=== PATIENT | female | born 1960 | race Caucasian/White ===

== ENCOUNTER 2018-11-06 08:56 | Day surgery (SDC) | payer BC ==
[~2018-11-06 08:56] MED LIST: Sodium Chloride 0.9% 10 ML Syringe FLUSH PRN
[2018-11-06] MEDS ORDERED: Lidocaine 1% 4 ML ONE (09:40)
[2018-11-06] MEDS ORDERED: Propofol 200 MG/20 ML SDV ONE ×2 (09:40→13:07)
[2018-11-06] MEDS ORDERED: Midazolam 1 MG/ML 2 ML SDV ONE (09:40)
[2018-11-06] MEDS: Lidocaine 1%/Sod Bicarbonate in NS 8.4% 1 ML Syringe IDERM PRN (10:28)
[2018-11-06] MEDS: Lactated Ringers 1,000 ML IV SCH (10:30)
--- NOTE | 2018-11-06 10:51 | PCM.PREANE ---
Preanesthetic Assessment - Procedure Proposed Procedure: screening colonoscopy - Anesthesia/Transfusion/Family Hx Anesthesia History: Prior Anesthesia Without Reaction Family History of Anesthesia Reaction: No Transfusion History: No Prior Transfusion(s) - Review of Systems General: No Symptoms Pulmonary: Cough (getting over a cold) Cardiovascular: No Symptoms Gastrointestinal: No Symptoms Neurological: No Symptoms Other: Reports: Thyroid Problems, Anxiety - Physical Assessment NPO Status Date: 11/06/18 NPO Status Time: 04:00 (prep) Vital Signs: Last Vital Signs Temp 97.1 F 11/06/18 10:20 Pulse 66 11/06/18 10:20 Resp 16 11/06/18 10:20 BP 140/75 11/06/18 10:20 Pulse Ox 97 11/06/18 10:20 Height: 5 ft 7 in Weight: 98.43 kg ASA Class: 2 Mental Status: Alert & Oriented x3 Airway Class: Mallampati = 2 Dentition: Reports: Normal Dentition Thyro-Mental Finger Breadths: 3 Mouth Opening Finger Breadths: 3 ROM/Head Extension: Full Lungs: Clear to Auscultation, Normal Respiratory Effort Cardiovascular: Regular Rate, Regular Rhythm - Allergies Allergies/Adverse Reactions: Allergies Allergy/AdvReac Type Severity Reaction Status Date / Time No Known Allergies Allergy Verified 11/05/18 16:26 - Blood Blood Available: No - Acknowledgements Anesthesia Type Planned: MAC Pt an Appropriate Candidate for the Planned Anesthesia: Yes Alternatives and Risks of Anesthesia Discussed w Pt/Guardian: Yes Pt/Guardian Understands and Agrees with Anesthesia Plan: Yes PreAnesthesia Questionnaire HEENT History: Reports: Allergic Rhinitis, Other (See Below) Other HEENT History: impacted cerumen, cataract Cardiovascular History: Reports: Other (See Below) Other Cardiovascular History: varicose veins Respiratory History: Reports: Sleep Apnea (cpap) Gastrointestinal History: Reports: Hemorrhoids Genitourinary History: Reports: None 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 Musculoskeletal History: Reports: None Neurological History: Reports: Other (See Below) Other Neuro History: neck pain- occasional Psychiatric History: Reports: Anxiety, Depression, Other (See Below) Other Psychiatric History: insomnia Endocrine/Metabolic History: Reports: Hypothyroidism, Obesity/BMI 30+, Vitamin D Deficiency, Other (See Below) Other Endocrine/Metabolic History: grave's disease Hematologic History: Reports: None Immunologic History: Reports: None Oncologic (Cancer) History: Reports: None Dermatologic History: Reports: Other (See Below) Other Dermatologic History: nevus - Past Surgical History Head Surgeries/Procedures: Reports: None HEENT Surgical History: Reports: Cataract Surgery, Detached Retina, LASIK Cardiovascular Surgical History: Reports: None Respiratory Surgical History: Reports: None GI Surgical History: Reports: Colonoscopy Female Surgical History: Reports: None Male Surgical History: Reports: None Endocrine Surgical History: Reports: Thyroidectomy Neurological Surgical History: Reports: None Musculoskeletal Surgical History: Reports: None Oncologic Surgical History: Reports: None - SUBSTANCE USE Smoking Status *Q: Never Smoker Tobacco Use Within Last Twelve Months: No Second Hand Smoke Exposure: No Days Per Week of Alcohol Use: 1 Number of Drinks Per Day: 2 (beer) Total Drinks Per Week: 2 Recreational Drug Use History: No - HOME MEDS Home Medications: Home Meds Cholecalciferol (Vitamin D3) [Vitamin D3] 2,000 unit PO DAILY 11/05/18 [History] Codeine/Butalbital/ASA/Caffein [Ascomp with Codeine] 1 tab PO Q4H PRN 11/05/18 [ History] Cyclobenzaprine [Flexeril] 10 mg PO TID 11/05/18 [History] Fish Oil/[place]-3 Fatty Acids [Fish Oil 1,000 MG] 1 gm PO DAILY 11/05/18 [History ] Levothyroxine [Synthroid] 100 mcg PO DAILY 11/05/18 [History] Lutein 10 mg PO DAILY 11/05/18 [History] Multivitamin [Daily Multiple Vitamin] 1 tab PO DAILY 11/05/18 [History] Propylene Glycol/PEG 400/Pf [Systane 0.3-0.4% Eye Drop] 1 drop EYEBOTH ASDIRECTED 11/05/18 [History] Venlafaxine HCl [Venlafaxine ER] 150 mg PO DAILY 11/05/18 [History] - CURRENT (IN HOUSE) MEDS Current Meds: Current Medications Lactated Ringer's (Ringers, Lactated) 1,000 mls @ 125 mls/hr IV ASDIRECTED KALIE Stop: 11/06/18 23:00 Lidocaine/Sodium Bicarbonate (Buffered Lidocaine 1% In Ns 8.4%) 0.25 ml IDERM ONETIME PRN PRN Reason: Prior to IV Start Stop: 11/06/18 18:00 Sodium Chloride (Saline Flush) 10 ml FLUSH ASDIRECTED PRN PRN Reason: Keep Vein Open Stop: 11/06/18 18:00 Discontinued Medications Lidocaine HCl (Xylocaine-Mpf 1%) Confirm Administered Dose 4 mls @ as directed .ROUTE .STK-MED ONE Stop: 11/06/18 09:41 Midazolam HCl (Versed 1 Mg/Ml) Confirm Administered Dose 2 mg .ROUTE .STK-MED ONE Stop: 11/06/18 09:41 Propofol (Diprivan 20 Ml) Confirm Administered Dose 400 mg .ROUTE .STK-MED ONE Stop: 11/06/18 09:41
[2018-11-06] MEDS ORDERED: fentaNYL 100 MCG/2 ML SDV ONE (12:40)
--- NOTE | 2018-11-06 13:25 | PCM48HPAN ---
Post Anesthesia Note - EVALUATION WITHIN 48HRS OF ANESTHETIC Vital Signs in Normal Range: Yes Patient Participated in Evaluation: Yes Respiratory Function Stable: Yes Airway Patent: Yes Cardiovascular Function Stable: Yes Hydration Status Stable: Yes Pain Control Satisfactory: Yes Nausea and Vomiting Control Satisfactory: Yes Mental Status Recovered: Yes Vital Signs: Last Vital Signs Temp 36.2 C 11/06/18 10:20 Pulse 66 11/06/18 10:20 Resp 16 11/06/18 10:20 BP 140/75 11/06/18 10:20 Pulse Ox 97 11/06/18 10:20 - COMMENTS/OBSERVATIONS Free Text/Narrative:: no anesthesia complications noted
--- NOTE | 2018-11-06 20:17 | OR ---
DATE OF OPERATION: 11/06/2018 SURGEON: Rakan Cancino MD PREOPERATIVE DIAGNOSIS: Strong family history of colon cancer. POSTOPERATIVE DIAGNOSIS: Strong family history of colon cancer and colon polyp. OPERATION PERFORMED: Endoscopic submucosal tattoo injection and polypectomy. ANESTHESIA: MAC. FINDINGS: She had a broad-based sessile polyp covering substantial portion of the mucosal fold in the ascending colon. This broad-based polyp was quite difficult to get to. She has a very redundant colon. Once I was in position, I tried to remove this with a snare, but I could never get purchase on this sessile polyp as the angulation of the scope did not allow for snare polypectomy, so I had to remove the polyp piecemeal over a fairly broad soft tissue. At some point, I was unable to determine polyp versus macerated tissue. The adjacent mucosal fold was tattooed with endoscopic tattoo. Her bowel prep was excellent. PATHOLOGY: Ascending colon polyp. DISPOSITION: Stable at the end of the procedure. ESTIMATED BLOOD LOSS: Minimal. INDICATION: The patient is a 58-year-old female who presents with a strong family history of colon cancer. Her brother of the diagnosis in his 60s. She was offered a screening colonoscopy per the standard of care. She was fully informed of the major risks, benefits, and alternatives. The risks being perforation of the colon, bleeding, the risks of anesthesia, and possibility of further surgery among others. She gave informed consent. DESCRIPTION OF PROCEDURE: The patient was brought to the gastro suite and placed in the left lateral decubitus position. She was given monitored anesthesia. Digital rectal exam was performed, this was unremarkable. I introduced the colonoscope with copious lubrication into the rectum. I advanced the scope with gentle forward pressure. She has an extremely redundant colon requiring anterior abdominal wall pressure from 2 assistants. Eventually, I was able to reach the cecum. The cecum was documented photographically. On the way in, I noted a broad-based polyp as described above in the ascending colon. I initially attempted to remove this polyp with snare, but I could not angulate the scope more than 90 degrees to get purchase around the polyp, and so biopsy forceps was utilized to resect the polyp piecemeal. I took multiple bites of this polyp spread over large a portion of a mucosal fold. Eventually, I was unable to determine the difference between macerated tissue and the polyp itself. I had tattooed the adjacent mucosa with 2 mL of endoscopic tattoo. I continued my examination. I thoroughly examined the mucosa of the colon from the ascending colon all the way back to the anus in an exam lasting more than 20 minutes. Thorough careful examination demonstrated only this polyp. The remainder of her colonoscopy was unremarkable. At the end of the procedure, the scope was withdrawn. She was awakened from anesthesia and moved to recovery in stable condition. PLAN: She will need another colonoscopy in 3 months to assure complete removal of this macerated sessile polyp. SHARMAINE /[id number]
== END 2018-11-06 14:35 | disposition home or self-care (01) ==
LOC: JD.SDS 08:56
PROVIDERS: ATTEND Surgery
DX: Z12.11 Encounter for screening for malignant neoplasm of colon (principal); D12.2 Benign neoplasm of ascending colon; Q43.8 Other specified congenital malformations of intestine; E78.00 Pure hypercholesterolemia, unspecified; G47.33 Obstructive sleep apnea (adult) (pediatric); E55.9 Vitamin D deficiency, unspecified; F32.9 Major depressive disorder, single episode, unspecified; F41.9 Anxiety disorder, unspecified; Z80.0 Family history of malignant neoplasm of digestive organs; Z99.89 Dependence on other enabling machines and devices; Z79.899 Other long term (current) drug therapy
CPT/HCPCS: 00812; J2001; J2250; J2704; J3010; J7120

== ENCOUNTER 2019-02-26 07:07 | Day surgery (SDC) | payer BC ==
--- NOTE | 2019-02-25 11:54 | PCM.PREANE ---
Preanesthetic Assessment - Anesthesia/Transfusion/Family Hx Anesthesia History: Prior Anesthesia Without Reaction Family History of Anesthesia Reaction: No Transfusion History: No Prior Transfusion(s) Intubation History: Unknown - Review of Systems General: No Symptoms Pulmonary: No Symptoms (ESTHER-CPAP) Cardiovascular: No Symptoms Gastrointestinal: Constipation Neurological: No Symptoms, Headache Other: Reports: Thyroid Problems (hypothyroidism, history of graves disease), Neck Pain (chronic), Depression, Anxiety - Physical Assessment NPO Status Date: 02/26/19 NPO Status Time: 04:00 Vital Signs: HR:65 BP:149/74 Sat:99 Temp:98.6 Resp:16 Height: 1.7 m Weight: 104 kg ASA Class: 2 Mental Status: Alert & Oriented x3 Airway Class: Mallampati = 2 Dentition: Reports: Normal Dentition, Caries Thyro-Mental Finger Breadths: 3 Mouth Opening Finger Breadths: 3 ROM/Head Extension: Full Lungs: Clear to Auscultation, Normal Respiratory Effort Cardiovascular: Regular Rate, Regular Rhythm, No Murmurs - Lab Values: All labs reviewed and noted and within acceptable ranges to proceed with scheduled procedure. - Allergies Allergies/Adverse Reactions: Allergies Allergy/AdvReac Type Severity Reaction Status Date / Time No Known Allergies Allergy Verified 02/25/19 13:38 - Anesthesia Plan Pre-Op Medication Ordered: None - Acknowledgements Anesthesia Type Planned: MAC Pt an Appropriate Candidate for the Planned Anesthesia: Yes Alternatives and Risks of Anesthesia Discussed w Pt/Guardian: Yes Pt/Guardian Understands and Agrees with Anesthesia Plan: Yes PreAnesthesia Questionnaire HEENT History: Reports: Allergic Rhinitis, Other (See Below) Other HEENT History: impacted cerumen, cataract Cardiovascular History: Reports: Other (See Below) Other Cardiovascular History: varicose veins Respiratory History: Reports: Sleep Apnea (cpap) Gastrointestinal History: Reports: Hemorrhoids Genitourinary History: Reports: None 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 Musculoskeletal History: Reports: None Neurological History: Reports: Other (See Below) Other Neuro History: neck pain- occasional Psychiatric History: Reports: Anxiety, Depression, Other (See Below) Other Psychiatric History: insomnia Endocrine/Metabolic History: Reports: Hypothyroidism, Obesity/BMI 30+, Vitamin D Deficiency, Other (See Below) Other Endocrine/Metabolic History: grave's disease Hematologic History: Reports: None Immunologic History: Reports: None Oncologic (Cancer) History: Reports: None Dermatologic History: Reports: Other (See Below) Other Dermatologic History: nevus - Past Surgical History Head Surgeries/Procedures: Reports: None HEENT Surgical History: Reports: Cataract Surgery, Detached Retina, LASIK Cardiovascular Surgical History: Reports: None Respiratory Surgical History: Reports: None GI Surgical History: Reports: Colonoscopy Female Surgical History: Reports: None Male Surgical History: Reports: None Endocrine Surgical History: Reports: Thyroidectomy Neurological Surgical History: Reports: None Musculoskeletal Surgical History: Reports: None Oncologic Surgical History: Reports: None - HOME MEDS Home Medications: Home Meds Cholecalciferol (Vitamin D3) [Vitamin D3] 2,000 unit PO DAILY 11/05/18 [History] Codeine/Butalbital/ASA/Caffein [Ascomp with Codeine] 1 tab PO Q4H PRN 11/05/18 [ History] Cyclobenzaprine [Flexeril] 10 mg PO TID 11/05/18 [History] Fish Oil/[place]-3 Fatty Acids [Fish Oil 1,000 MG] 1 gm PO DAILY 11/05/18 [History ] Levothyroxine [Synthroid] 100 mcg PO DAILY 11/05/18 [History] Lutein 10 mg PO DAILY 11/05/18 [History] Multivitamin [Daily Multiple Vitamin] 1 tab PO DAILY 11/05/18 [History] Propylene Glycol/PEG 400/Pf [Systane 0.3-0.4% Eye Drop] 1 drop EYEBOTH ASDIRECTED 11/05/18 [History] Venlafaxine HCl [Venlafaxine ER] 150 mg PO DAILY 11/05/18 [History] - CURRENT (IN HOUSE) MEDS Current Meds: Current Medications Lactated Ringer's (Ringers, Lactated) 1,000 mls @ 125 mls/hr IV ASDIRECTED KALIE Stop: 02/26/19 23:00 Lidocaine/Sodium Bicarbonate (Buffered Lidocaine 1% In Ns 8.4%) 0.25 ml IDERM ONETIME PRN PRN Reason: Prior to IV Start Stop: 02/26/19 18:00 Sodium Chloride (Saline Flush) 10 ml FLUSH ASDIRECTED PRN PRN Reason: Keep Vein Open Stop: 02/26/19 18:00
[~2019-02-26 07:07] MED LIST changes: +Lactated Ringers 1,000 ML IV SCH; +Lidocaine 1% 6 ML ONE; +Lidocaine 1%/Sod Bicarbonate in NS 8.4% 1 ML Syringe IDERM PRN; +Propofol 200 MG/20 ML SDV ONE; +fentaNYL 100 MCG/2 ML SDV ONE
[2019-02-26] MEDS ORDERED: Propofol 200 MG/20 ML SDV ONE ×4 (08:22→09:45)
[2019-02-26] MEDS ORDERED: Lactated Ringers 0 ML ONE (08:38)
[2019-02-26] MEDS ORDERED: Lactated Ringers 1,000 ML ONE (09:55)
--- NOTE | 2019-02-26 10:10 | PCM.PRNOTE ---
- Free Text/Narrative Note: Date: 02/26/2019 Procedure: diagnostic endoscopy Endoscopist: Natanael Aguiar MD Findings: old tattoo ink and broad-based sessile polyp in previously described site identified. Extremely difficult colonoscopy due to redundancy of the colon. Detailed Report: The patient was taken to the endoscopy suite and placed in left lateral decubitus position. Monitored anesthesia care was initiated, and timeout was performed. Inspection of the anus revealed small external hemorrhoidal disease. Digital rectal exam was unremarkable. The colonoscope was advanced to the ileocecal valve. The prep was mediocre. Performance of colonoscopy was extremely difficult due to redundancy of the colon. The ascending colon was inspected, an old tattoo ink was identified just proximal to a sessile polyp matching description and previous colonoscopy report 3 months ago. This lesion was not amenable to endoscopic resection. Patient tolerated the procedure well. Recommend right hemicolectomy for definitive removal of this lesion. Natanael Aguiar MD General Surgery
--- NOTE | 2019-02-26 10:10 | PCM48HPAN ---
Post Anesthesia Note - EVALUATION WITHIN 48HRS OF ANESTHETIC Vital Signs in Normal Range: Yes Patient Participated in Evaluation: Yes Respiratory Function Stable: Yes Airway Patent: Yes Cardiovascular Function Stable: Yes Hydration Status Stable: Yes Pain Control Satisfactory: Yes Nausea and Vomiting Control Satisfactory: Yes Mental Status Recovered: Yes Vital Signs: Last Vital Signs Temp 37.0 C 02/26/19 07:20 Pulse 65 02/26/19 07:20 Resp 16 02/26/19 07:20 BP 149/74 H 02/26/19 07:20 Pulse Ox 99 02/26/19 07:20
== END 2019-02-26 11:13 | disposition home or self-care (01) ==
LOC: JD.SDS 07:07
PROVIDERS: ATTEND Surgery
DX: K63.5 Polyp of colon (principal); Q43.8 Other specified congenital malformations of intestine; K64.4 Residual hemorrhoidal skin tags; F41.9 Anxiety disorder, unspecified; F32.9 Major depressive disorder, single episode, unspecified; E78.00 Pure hypercholesterolemia, unspecified; G47.00 Insomnia, unspecified; G47.33 Obstructive sleep apnea (adult) (pediatric); I83.93 Asymptomatic varicose veins of bilateral lower extremities; E55.9 Vitamin D deficiency, unspecified; E89.0 Postprocedural hypothyroidism; E05.00 Thyrotoxicosis with diffuse goiter without thyrotoxic crisis or storm; E66.9 Obesity, unspecified; Z68.38 Body mass index [BMI] 38.0-38.9, adult; Z80.0 Family history of malignant neoplasm of digestive organs; Z99.89 Dependence on other enabling machines and devices; Z98.890 Other specified postprocedural states; Z79.890 Hormone replacement therapy; Z79.899 Other long term (current) drug therapy
CPT/HCPCS: 36415; 45378; 80053; 85025; 85610; 93005; J2001; J2704; J3010; J7120

== ENCOUNTER 2019-02-28 09:02 | Inpatient (IN) | payer BC ==
--- NOTE | 2019-02-28 06:17 | PCM.PREANE ---
Preanesthetic Assessment - Anesthesia/Transfusion/Family Hx Anesthesia History: Prior Anesthesia Without Reaction Family History of Anesthesia Reaction: No Transfusion History: No Prior Transfusion(s) Intubation History: Unknown - Review of Systems General: No Symptoms Pulmonary: No Symptoms (ESTHER - CPAP, ETOH occasionally), Cough (dry cough noted on/off for 3-4 months) Cardiovascular: No Symptoms, Dyspnea on Exertion Gastrointestinal: No Symptoms, Constipation Neurological: No Symptoms, Headache Other: Reports: Easy Bruising, Thyroid Problems (Hypothyroid- history of Graves disease), Neck Pain (chronic), Depression, Anxiety - Physical Assessment NPO Status Date: 02/27/19 NPO Status Time: 18:00 Vital Signs: HR:70 BP:133/66 Sat:92% Temp:98.0f Height: 1.7 m Weight: 102 kg ASA Class: 2 Mental Status: Alert & Oriented x3 Airway Class: Mallampati = 2 Dentition: Reports: Normal Dentition, Caries Thyro-Mental Finger Breadths: 3 Mouth Opening Finger Breadths: 3 ROM/Head Extension: Full Lungs: Clear to Auscultation (Good air exchange noted with decreased O2 saturation on room air at rest noted. PCXR ordered.), Normal Respiratory Effort Cardiovascular: Regular Rate, Regular Rhythm, No Murmurs - Lab Values: All labs reviewed and noted and within acceptable ranges to proceed with scheduled procedure. - Imaging/EKG Impressions: EKG: SB rate= 57, consider left atrial hypertrophy - Allergies Allergies/Adverse Reactions: Allergies Allergy/AdvReac Type Severity Reaction Status Date / Time No Known Allergies Allergy Verified 02/25/19 13:38 - Anesthesia Plan Pre-Op Medication Ordered: None - Acknowledgements Anesthesia Type Planned: General Anesthesia Pt an Appropriate Candidate for the Planned Anesthesia: Yes Alternatives and Risks of Anesthesia Discussed w Pt/Guardian: Yes Pt/Guardian Understands and Agrees with Anesthesia Plan: Yes PreAnesthesia Questionnaire HEENT History: Reports: Allergic Rhinitis, Other (See Below) Other HEENT History: impacted cerumen, cataract Cardiovascular History: Reports: Other (See Below) Other Cardiovascular History: varicose veins Respiratory History: Reports: Sleep Apnea (cpap) Gastrointestinal History: Reports: Hemorrhoids Genitourinary History: Reports: None [employer]BE[employer]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 Musculoskeletal History: Reports: None Neurological History: Reports: Other (See Below) Other Neuro History: neck pain- occasional Psychiatric History: Reports: Anxiety, Depression, Other (See Below) Other Psychiatric History: insomnia Endocrine/Metabolic History: Reports: Hypothyroidism, Obesity/BMI 30+, Vitamin D Deficiency, Other (See Below) Other Endocrine/Metabolic History: grave's disease Hematologic History: Reports: None Immunologic History: Reports: None Oncologic (Cancer) History: Reports: None Dermatologic History: Reports: Other (See Below) Other Dermatologic History: nevus - Past Surgical History Head Surgeries/Procedures: Reports: None HEENT Surgical History: Reports: Cataract Surgery, Detached Retina, LASIK Cardiovascular Surgical History: Reports: None Respiratory Surgical History: Reports: None GI Surgical History: Reports: Colonoscopy Female Surgical History: Reports: None Male Surgical History: Reports: None Endocrine Surgical History: Reports: Thyroidectomy Neurological Surgical History: Reports: None Musculoskeletal Surgical History: Reports: None Oncologic Surgical History: Reports: None - HOME MEDS Home Medications: Home Meds Cholecalciferol (Vitamin D3) [Vitamin D3] 2,000 unit PO DAILY 11/05/18 [History] Codeine/Butalbital/ASA/Caffein [Ascomp with Codeine] 1 tab PO Q4H PRN 11/05/18 [ History] Cyclobenzaprine [Flexeril] 10 mg PO TID 11/05/18 [History] Fish Oil/[employer]-3 Fatty Acids [Fish Oil 1,000 MG] 1 gm PO DAILY 11/05/18 [History ] Levothyroxine [Synthroid] 100 mcg PO DAILY 11/05/18 [History] Lutein 10 mg PO DAILY 11/05/18 [History] Multivitamin [Daily Multiple Vitamin] 1 tab PO DAILY 11/05/18 [History] Propylene Glycol/PEG 400/Pf [Systane 0.3-0.4% Eye Drop] 1 drop EYEBOTH ASDIRECTED 11/05/18 [History] Venlafaxine HCl [Venlafaxine ER] 150 mg PO DAILY 11/05/18 [History] - CURRENT (IN HOUSE) MEDS Current Meds: Current Medications Lactated Ringer's (Ringers, Lactated) 1,000 mls @ 125 mls/hr IV ASDIRECTED KALIE Stop: 02/28/19 23:00 Lidocaine/Sodium Bicarbonate (Buffered Lidocaine 1% In Ns 8.4%) 0.25 ml IDERM ONETIME PRN PRN Reason: Prior to IV Start Stop: 02/28/19 18:00 Sodium Chloride (Saline Flush) 10 ml FLUSH ASDIRECTED PRN PRN Reason: Keep Vein Open Stop: 02/28/19 18:00
[~2019-02-28 09:02] MED LIST changes: +Dexamethasone 4 MG/ML 5 ML MDV ONE; +HYDROmorphone 0.5 MG/0.5 ML Syringe ONE; +Ketorolac 30 MG/ML SDV ONE; +Lactated Ringers 2,000 ML ONE; +Midazolam 1 MG/ML 2 ML SDV ONE; +Ondansetron 4 MG/2 ML SDV ONE; +Rocuronium 100 MG/10 ML MDV ONE; +ceFAZolin 1 GM Vial ONE; -fentaNYL 100 MCG/2 ML SDV ONE; +fentaNYL 250 MCG/5 ML SDV ONE
[2019-02-28] MEDS ORDERED: Bupivacaine 0.5% 30 ML SDV ONE (09:09)
[2019-02-28] MEDS ORDERED: Albuterol 0.083% 2.5 MG/3 ML Neb Soln NEB ONE (09:37)
[2019-02-28] MEDS ORDERED: Bupivacaine 0.5%/EPINEPHrine 1:200,000 50 ML MDV ONE (09:50)
--- NOTE | 2019-02-28 10:13 | CR ---
Chest: 2 views of the chest were obtained. Comparison: No prior chest imaging is available. Heart size and mediastinum are normal. Lungs are clear. Bony structures appear within normal limits for the patient's age. Impression: 1. Nothing acute is appreciated on 2 view chest x-ray. Diagnostic code #1 This report was dictated in [place] Standard Time
[2019-02-28] MEDS ORDERED: diphenhydrAMINE 50 MG/ML SDV IVPUSH PRN (10:47)
[2019-02-28] MEDS ORDERED: ePHEDrine 50 MG/ML SDV IVPUSH PRN (10:47)
[2019-02-28] MEDS ORDERED: Ondansetron 4 MG/2 ML SDV IVPUSH PRN (10:47)
[2019-02-28] MEDS ORDERED: Albuterol 0.083% 2.5 MG/3 ML Neb Soln NEB PRN (10:47)
[2019-02-28] MEDS ORDERED: HYDROmorphone 0.5 MG/0.5 ML Syringe IVPUSH PRN (10:47)
[2019-02-28] MEDS ORDERED: Phenylephrine 1 MG in Sodium Chloride 0.9% 10 ML IV SCH (11:00)
[2019-02-28] MEDS ORDERED: Neostigmine Methylsulfate 1 MG/ML 5 ML Syringe ONE (11:02)
[2019-02-28] MEDS ORDERED: HYDROmorphone 0.5 MG/0.5 ML Syringe ONE ×2 (11:03→13:02)
[2019-02-28] MEDS ORDERED: ePHEDrine/Normal Saline 25 MG/5 ML Syringe ONE (12:35)
[2019-02-28] MEDS ORDERED: Lactated Ringers 1,000 ML ONE (12:45)
[2019-02-28] MEDS ORDERED: Rocuronium 100 MG/10 ML MDV ONE (12:50)
[2019-02-28] MEDS ORDERED: fentaNYL 100 MCG/2 ML SDV ONE ×3 (13:41→15:13)
--- NOTE | 2019-02-28 14:29 | PCM.POSTAN ---
POST ANESTHESIA ASSESSMENT - MENTAL STATUS Mental Status: Alert - VITAL SIGNS Vital Signs: Last Vital Signs Temp 98.9 02/28/19 1419 Pulse 74 02/28/19 1419 Resp 11 02/28/19 1419 BP 131/72 02/28/19 1419 Pulse Ox 99% 02/28/19 1419 - RESPIRATORY Respiratory Status: Respiratory Rate WNL, Airway Patent, O2 Saturation Stable, Supplemental Oxygen - CARDIOVASCULAR CV Status: Pulse Rate WNL, Blood Pressure Stable - GASTROINTESTINAL GI Status: No Symptoms - POST OP HYDRATION Hydration Status: Adequate & Stable
--- NOTE | 2019-02-28 14:34 | PCM.PRNOTE ---
- Free Text/Narrative Note: Date: 02/28/2019 Operation: Laparoscopic right colectomy with ileocolic anastomosis Surgeon: Natanael Aguiar MD Indication: Piecemeal resection of broad based tubular adenoma months ago, with repeat scope earlier this week that was very difficult due to redundancy; the area of prior resection was seen including previously tattooed area. There did appear to be a mucosal lesion distal to the ink that was not very accessible with the endoscope. Therefore, right hemicolectomy was recommended. Findings: marking ink noted at mid ascending colon and associated mesentery. Very floppy, redundant colon with some omental adhesions to the right mesocolon. Specimen was resected about 5 cm distal to the inked site and opened on back table; no obvious adenoma was noted and I think that the prominence of the ileocecal junction was what appeared to be a broad-based adenoma on endoscopy. Stapled side to sided ileocolic anastomosis was created. Detailed Report: The patient was taken to the operating room and placed supine. Timeout was performed, general endotracheal anesthesia administered. The left arm was tucked the patient side, and a Hoyos catheter was placed. The abdomen was prepped and draped in usual sterile fashion. A Veress needle was inserted in the left upper quadrant to insufflate the abdomen. With pneumoperitoneum established, a 12 mm port was placed at the site of Veress insertion. The 10 mm 30 degree laparoscope was inserted in the abdomen, and contents inspected. A 5 mm port was placed at the subxiphoid region. The patient was placed in Trendelenburg with left side down to aid in exposure of the a sending colon. A periumbilical midline incision large enough to permit the surgeon's left hand was made, and GelPort put in position for hand assistance during dissection. The cecum was grasped and retracted anteriorly and inferiorly, putting tension on the ileocolic pedicle. The [place] LigaSure was used to make a window in the mesentery inferior to the site of the vessel. Retroperitoneal structures were kept down, including the duodenum, as the plane between retroperitoneum and colonic mesentery was developed from medial to lateral. The ileocolic pedicle was divided proximally using the LigaSure. Once dissection had extended lateral to the a sending colon, the terminal ileum was then addressed. A small window was made in the mesentery to the terminal ileum, and a 45 mm blue load stapler was used to divide the ileum at the site. Remaining attachments of the ascending colon were taken with the LigaSure, including lateral attachments to the white line of Toldt up towards the hepatic flexure. We then started working on attachments of the transverse colon. Omental attachments were divided near the colon, entering the lesser sac and exposing the transverse mesocolon. The hepatic flexure was mobilized as well as could possibly be done laparoscopically, however with redundancy of the colon it became somewhat difficult to ensure that the duodenum was being protected and kept down with the retroperitoneum. At this point, pneumoperitoneum was released, and the hand port was removed. The mobilized colon was externalized, as well as the stapled end of the terminal ileum. The colon was then divided using the stapler 5 cm distal to the inked site, just beyond the hepatic flexure. The remaining colon and terminal ileum were aligned for [id number] anastomosis, which was created with 2 fires of the 55 mm blue load stapler. The remaining enterotomy was closed with several interrupted Vicryl sutures. The anastomosis felt patent. The anastomosis was draped with omentum, and larger port sites and midline incision were closed at the level of fascia with absorbable suture. And sites were closed with jess. A total of 20 cc half percent Marcaine with epinephrine was used for local anesthetic at incision sites. Wounds were dressed with gauze and Tegaderm. The patient tolerated the procedure well. Natanael Aguiar MD
[2019-02-28] MEDS: fentaNYL 100 MCG/2 ML SDV IVPUSH PRN ×2 (14:57→15:16)
[2019-02-28] MEDS: Acetaminophen 325 MG Tab PO SCH ×2 (17:00→23:30)
[2019-02-28] MEDS: oxyCODONE 5 MG Tab PO PRN ×2 (17:01→21:03)
[2019-02-28] MEDS: Heparin Sodium 5,000 Units/ML Vial SUBCUT SCH (17:02)
[2019-02-28] MEDS: Morphine 2 MG/ML SYRINGE IVPUSH PRN ×2 (17:03→21:06)
[2019-02-28] MEDS ORDERED: Ondansetron 4 MG Tab.DIS PO PRN (18:31)
[2019-02-28] MEDS: Lactated Ringers 1,000 ML IV SCH (19:32)
[2019-03-01] MEDS: Heparin Sodium 5,000 Units/ML Vial SUBCUT SCH ×3 (00:56→17:26)
[2019-03-01] MEDS: oxyCODONE 5 MG Tab PO PRN ×4 (04:47→20:18)
[2019-03-01] MEDS: Lactated Ringers 1,000 ML IV SCH (05:08)
[2019-03-01] MEDS: Acetaminophen 325 MG Tab PO SCH ×2 (06:10→15:29)
[2019-03-01] MEDS: Levothyroxine 100 MCG Tab PO SCH (06:12)
--- NOTE | 2019-03-01 07:40 | PCM48HPAN ---
Post Anesthesia Note - EVALUATION WITHIN 48HRS OF ANESTHETIC Vital Signs in Normal Range: Yes Patient Participated in Evaluation: Yes Respiratory Function Stable: Yes Airway Patent: Yes Cardiovascular Function Stable: Yes Hydration Status Stable: Yes Pain Control Satisfactory: Yes Nausea and Vomiting Control Satisfactory: Yes Mental Status Recovered: Yes Vital Signs: Last Vital Signs Temp 37.1 C 03/01/19 04:50 Pulse 74 03/01/19 04:50 Resp 18 03/01/19 04:50 BP 123/85 03/01/19 04:50 Pulse Ox 100 03/01/19 05:22
[2019-03-01] MEDS: Venlafaxine 75 MG Cap.ER PO SCH (08:38)
[2019-03-01] MEDS: Morphine 2 MG/ML SYRINGE IVPUSH PRN ×2 (08:50→13:13)
--- NOTE | 2019-03-01 15:01 | PCM.SN ---
- Free Text/Narrative Note: S: POD 1 s/p laparoscopic right hemicolectomy, doing well Tolerating clears. No supplemental oxygen. Pain manageable. No nausea, no flatus. O: AF-VSS Awake and alert, no distress breathing comfortably RRR Abd: incision sites with some minor serosanguinous staining of dressings. Soft, appropriately tender. ; riley in place MSK: full strength and range of motion Skin: warm, dry, well perfused A: Doing well s/p lap R colectomy yesterday P: -continue pain regimen -OOB, IS -ton -regular diet -d/c riley, f/u void -heparin ppx -await return of bowel function
[2019-03-02] MEDS: Acetaminophen 325 MG Tab PO SCH ×4 (00:23→22:02)
[2019-03-02] MEDS: Heparin Sodium 5,000 Units/ML Vial SUBCUT SCH ×3 (00:24→15:16)
[2019-03-02] MEDS: Morphine 2 MG/ML SYRINGE IVPUSH PRN ×2 (00:34→12:32)
[2019-03-02] MEDS: Levothyroxine 100 MCG Tab PO SCH (06:32)
[2019-03-02] MEDS: oxyCODONE 5 MG Tab PO PRN ×4 (06:32→20:34)
--- NOTE | 2019-03-02 08:12 | PCM.SN ---
- Free Text/Narrative Note: Date: 03/02/2019 S: pain better controlled, slept well overnight. No flatus. Denies nausea. O: AF-VSS awake and alert room air, breathing comfortably RRR Abd soft, no distention, incision sites intact without sign of infection A: POD 2 s/p lap right colectomy for adenomatous polyp, doing well P: -awaiting return of bowel function -try for oral analgesics as first line with IV only as back up for breakthrough pain -up out of bed, incentive spirometry -PT/OT eval
[2019-03-02] MEDS: Venlafaxine 75 MG Cap.ER PO SCH (08:17)
[2019-03-03] MEDS: Heparin Sodium 5,000 Units/ML Vial SUBCUT SCH ×4 (00:15→23:15)
[2019-03-03] MEDS: oxyCODONE 5 MG Tab PO PRN ×3 (04:26→20:00)
[2019-03-03] MEDS: Acetaminophen 325 MG Tab PO SCH ×3 (06:26→23:15)
[2019-03-03] MEDS: Levothyroxine 100 MCG Tab PO SCH (06:26)
--- NOTE | 2019-03-03 09:12 | PCM.SN ---
- Free Text/Narrative Note: Date: 03/03/2019 POD 3 s/p lap R colectomy for adenomatous polyp S: no acute events. Pain controlled without IV narcotic use, on room air, medlocked, ambulating, tolerating diet, passing flatus. O: AF_VSS UOP adequate no distress, awake and alert comfortable on room air RRR abd: soft, some distention, incision sites c/d/i with some surrounding ecchymosis more pronounced at larger midline incision. No drainage. MSK: full strength and range of motion A: Doing well, now with return of bowel function P: discussed discharge home this evening vs tomorrow morning depending on how the patient is feeling/ how the day goes.
[2019-03-03] MEDS: Venlafaxine 75 MG Cap.ER PO SCH (09:38)
[2019-03-03] MEDS: Polyethylene Glycol 3350 Powder 17 GM Packet PO SCH ×2 (17:56→23:15)
[2019-03-03] MEDS: Docusate Sodium 100 MG Cap PO SCH (17:56)
[2019-03-03] MEDS: Morphine 2 MG/ML SYRINGE IVPUSH PRN (23:20)
[2019-03-04] MEDS: Acetaminophen 325 MG Tab PO SCH (06:50)
[2019-03-04] MEDS: Levothyroxine 100 MCG Tab PO SCH (06:51)
[2019-03-04] MEDS: Heparin Sodium 5,000 Units/ML Vial SUBCUT SCH (08:37)
[2019-03-04] MEDS: Docusate Sodium 100 MG Cap PO SCH (08:37)
[2019-03-04] MEDS: Polyethylene Glycol 3350 Powder 17 GM Packet PO SCH (08:38)
[2019-03-04] MEDS: Venlafaxine 75 MG Cap.ER PO SCH (08:42)
--- NOTE | 2019-03-04 09:06 | PCM.DCSUM1 ---
Discharge Summary - Hospital Course Free Text/Narrative:: Ms. Contreras is a 58 yo woman who underwent a screening colonoscopy several months ago with Dr. Cancino and had a broad-based cecal polyp the was unable to be snared and was resected piecemeal with forceps. Pathology showed tubular adenoma. On repeat scope last week, it was very challenging to reach the cecum due to tortuosity and redundancy of the colon. The tattoo ink placed during Dr. Cancino's procedure was seen, as was a mucosal prominence thought to be a broadbased polyp, though the scope could not successfully be advanced to thoroughly inspect this lesion. Thus, she was scheduled for elective right colectomy for definitive removal of the lesion. She underwent laparoscopic hand-assisted right hemicolectomy with ileocolic anastomosis on 02/28/2019. The resected specimen included the site of inking, but when the specimen was opened up and inspected on the back table, the aforementioned prominence appeared to be the ileocecal junction and no other gross mucosal abnormality was noted. She tolerated the operation well and had an uneventful post-operative course. Evidence of resolved post-operative ileus occurred on POD 3 with return of flatus. Pain was well managed with oral analgesics, she was ambulatory, tolerating a diet and deemed fit for discharge on POD 4. Diagnosis: Stroke: No - Discharge Data Discharge Date: 03/04/19 Discharge Disposition: Home, Self-Care 01 Condition: Good - Referral to Home Health Primary Care Physician: Estelle Cooley MD - Patient Summary/Data Operative Procedure(s) Performed: laparoscopic right hemicolectomy Consults: Consultations 03/02/19 08:12 Consult to Occupational Therapy [OT Evaluation and Treatment] [CONS] Routine Consult to Physical Therapy [PT Evaluation and Treatment] [CONS] Routine - Patient Instructions Diet: Usual Diet as Tolerated Activity: No Lifting Over 10 Pounds, No Strenuous Activities Showering/Bathing: May Shower Wound/Incision Care: Keep Operative Site/Wound Site Clean and Dry Notify Provider of: Fever, Increased Pain, Swelling and Redness, Drainage, Nausea and/or Vomiting - Discharge Plan *PRESCRIPTION DRUG MONITORING PROGRAM REVIEWED*: Not Applicable *COPY OF PRESCRIPTION DRUG MONITORING REPORT IN PATIENT GEOFFREY: Not Applicable Prescriptions/Med Rec: oxyCODONE 5 mg PO Q4H PRN #15 tab PRN Reason: Pain Home Medications: Home Meds Codeine/Butalbital/ASA/Caffein [Ascomp with Codeine] 1 tab PO Q4H PRN 11/05/18 [ History] Cyclobenzaprine [Flexeril] 10 mg PO TID PRN 11/05/18 [History] Fish Oil/[place]-3 Fatty Acids [Fish Oil 1,000 MG] 1 gm PO DAILY 11/05/18 [History ] Levothyroxine [Synthroid] 100 mcg PO DAILY 11/05/18 [History] Lutein 10 mg PO DAILY 11/05/18 [History] Multivitamin [Daily Multiple Vitamin] 1 tab PO DAILY 11/05/18 [History] Propylene Glycol/PEG 400/Pf [Systane 0.3-0.4% Eye Drop] 1 drop EYEBOTH Q4HR PRN 11/05/18 [History] Venlafaxine HCl [Venlafaxine ER] 150 mg PO DAILY 11/05/18 [History] oxyCODONE 5 mg PO Q4H PRN #15 tab 03/04/19 [Rx] Oxygen Therapy Mode: Room Air Patient Handouts: Laparoscopic Colectomy, Care After - Discharge Summary/Plan Comment DC Time >30 min.: No - Patient Data Vitals - Most Recent: Last Vital Signs Temp 37.0 C 03/04/19 05:00 Pulse 66 03/04/19 05:00 Resp 14 03/04/19 05:00 BP 123/82 03/04/19 05:00 Pulse Ox 92 L 03/04/19 05:00 Weight - Most Recent: 103.102 kg I&O - Last 24 hours: Intake & Output 03/03/19 03/04/19 03/04/19 22:59 06:59 14:59 Intake Total 940 800 Output Total 2000 1800 Balance -1060 -1000 Med Orders - Current: Current Medications Acetaminophen (Tylenol) 975 mg PO Q8H [facility] Last Admin: 03/04/19 06:50 Dose: 975 mg Docusate Sodium (Colace) 100 mg PO DAILY [facility] Last Admin: 03/04/19 08:37 Dose: 100 mg Heparin Sodium (Porcine) (Heparin Sodium) 5,000 units SUBCUT Q8H [facility] Last Admin: 03/04/19 08:37 Dose: 5,000 units Levothyroxine Sodium (Synthroid) 100 mcg PO ACBREAKFAST [facility] Last Admin: 03/04/19 06:51 Dose: 100 mcg Morphine Sulfate (Morphine) 1 mg IVPUSH Q2H PRN PRN Reason: Pain (severe 7-10) Last Admin: 03/03/19 23:20 Dose: 1 mg Ondansetron HCl (Zofran Odt) 4 mg PO Q4H PRN PRN Reason: Nausea/Vomiting Oxycodone HCl (Oxycodone) 5 mg PO Q4H PRN PRN Reason: Pain (moderate 4-6) Last Admin: 03/03/19 20:00 Dose: 5 mg Polyethylene Glycol (Miralax) 17 gm PO BID [facility] Last Admin: 03/04/19 08:38 Dose: 17 gm Venlafaxine HCl (Effexor Xr) 150 mg PO DAILY [facility] Last Admin: 03/04/19 08:42 Dose: 150 mg Discontinued Medications Albuterol (Proventil Neb Soln) 2.5 mg NEB ONETIME ONE Stop: 02/28/19 09:38 Last Admin: 02/28/19 10:01 Dose: 2.5 mg Albuterol (Proventil Neb Soln) 2.5 mg NEB ONETIME PRN PRN Reason: bronchodilation Stop: 02/28/19 15:00 Bupivacaine HCl (Marcaine 0.5%) Confirm Administered Dose 30 ml .ROUTE .STK-MED ONE Stop: 02/28/19 09:10 Bupivacaine HCl/Epinephrine Bitart (Marcaine 0.5%/Epinephrine 1:200,000) Confirm Administered Dose 50 ml .ROUTE .STK-MED ONE Stop: 02/28/19 09:51 Last Admin: 02/28/19 10:45 Dose: 13 ml Cefazolin Sodium (Ancef) Confirm Administered Dose 2 gm .ROUTE .STK-MED ONE Stop: 02/28/19 06:42 Dexamethasone (Dexamethasone) Confirm Administered Dose 20 mg .ROUTE .STK-MED ONE Stop: 02/28/19 06:41 Diphenhydramine HCl (Benadryl) 25 mg IVPUSH Q6H PRN PRN Reason: pruritis Stop: 02/28/19 15:00 Ephedrine Sulfate (Ephedrine Sulfate) 5 mg IVPUSH ASDIRECTED PRN PRN Reason: Hypotension Stop: 02/28/19 16:00 Ephedrine Sulfate (Ephedrine In Ns) Confirm Administered Dose 25 mg .ROUTE .STK- MED ONE Stop: 02/28/19 12:36 Fentanyl (Sublimaze) Confirm Administered Dose 250 mcg .ROUTE .STK-MED ONE Stop: 02/28/19 06:42 Fentanyl (Sublimaze) 50 mcg IVPUSH Q5M PRN PRN Reason: Pain Stop: 02/28/19 12:00 Last Admin: 02/28/19 15:16 Dose: 50 mcg Fentanyl (Sublimaze) Confirm Administered Dose 100 mcg .ROUTE .STK-MED ONE Stop: 02/28/19 13:42 Fentanyl (Sublimaze) Confirm Administered Dose 100 mcg .ROUTE .STK-MED ONE Stop: 02/28/19 14:57 Last Admin: 02/28/19 15:01 Dose: Not Given Fentanyl (Sublimaze) Confirm Administered Dose 100 mcg .ROUTE .STK-MED ONE Stop: 02/28/19 15:14 Last Admin: 02/28/19 19:55 Dose: Not Given Glycopyrrolate () Confirm Administered Dose 1 mg .ROUTE .STK-MED ONE Stop: 02/28/19 11:03 Hydromorphone HCl (Dilaudid) Confirm Administered Dose 0.5 mg .ROUTE .STK-MED ONE Stop: 02/28/19 06:41 Hydromorphone HCl (Dilaudid) 0.5 mg IVPUSH Q15M PRN PRN Reason: Pain (severe 7-10) Stop: 02/28/19 12:00 Hydromorphone HCl (Dilaudid) Confirm Administered Dose 0.5 mg .ROUTE .STK-MED ONE Stop: 02/28/19 11:04 Hydromorphone HCl (Dilaudid) Confirm Administered Dose 0.5 mg .ROUTE .STK-MED ONE Stop: 02/28/19 13:03 Lactated Ringer's (Ringers, Lactated) 1,000 mls @ 125 mls/hr IV ASDIRECTED KALIE Stop: 02/28/19 23:00 Last Admin: 02/28/19 09:35 Dose: 125 mls/hr Lidocaine HCl (Xylocaine-Mpf 1%) Confirm Administered Dose 6 mls @ as directed .ROUTE .STK-MED ONE Stop: 02/28/19 06:41 Lactated Ringer's (Ringers, Lactated) Confirm Administered Dose 2,000 mls @ as directed .ROUTE .STK-MED ONE Stop: 02/28/19 06:41 Cefoxitin Sodium (Mefoxin In Dextrose,Iso-Osm 2 Gm/50 Ml) Confirm Administered Dose 50 mls @ as directed .ROUTE .STK-MED ONE Stop: 02/28/19 07:47 Phenylephrine HCl 1 mg/ Sodium (Chloride) 10.1 mls @ 1 mls/sec IV TITRATE KALIE; Protocol Stop: 02/28/19 14:00 Lactated Ringer's (Ringers, Lactated) Confirm Administered Dose 1,000 mls @ as directed .ROUTE .STK-MED ONE Stop: 02/28/19 12:46 Lactated Ringer's (Ringers, Lactated) 1,000 mls @ 100 mls/hr IV ASDIRECTED KALIE Last Admin: 03/01/19 05:08 Dose: 100 mls/hr Ketorolac Tromethamine (Toradol) Confirm Administered Dose 30 mg .ROUTE .ST- MED ONE Stop: 02/28/19 06:41 Lidocaine/Sodium Bicarbonate (Buffered Lidocaine 1% In Ns 8.4%) 0.25 ml IDERM ONETIME PRN PRN Reason: Prior to IV Start Stop: 02/28/19 18:00 Last Admin: 02/28/19 09:34 Dose: 0.25 ml Midazolam HCl (Versed 1 Mg/Ml) Confirm Administered Dose 2 mg .ROUTE .STK-MED ONE Stop: 02/28/19 06:41 Morphine Sulfate (Morphine) 1 mg IVPUSH Q4H PRN PRN Reason: Pain (severe 7-10) Last Admin: 03/01/19 13:13 Dose: 1 mg Neostigmine Methylsulfate (Neostigmine) Confirm Administered Dose 5 mg .ROUTE .STK-MED ONE Stop: 02/28/19 11:03 Ondansetron HCl (Zofran) Confirm Administered Dose 4 mg .ROUTE .STK-MED ONE Stop: 02/28/19 06:41 Ondansetron HCl (Zofran) 4 mg IVPUSH ONETIME PRN PRN Reason: Nausea/Vomiting Stop: 02/28/19 16:00 Propofol (Diprivan 20 Ml) Confirm Administered Dose 200 mg .ROUTE .STK-MED ONE Stop: 02/28/19 06:41 Rocuronium [place] (Zemuron) Confirm Administered Dose 100 mg .ROUTE .STK-MED ONE Stop: 02/28/19 06:41 Rocuronium [place] (Zemuron) Confirm Administered Dose 100 mg .ROUTE .STK-MED ONE Stop: 02/28/19 12:51 Sodium Chloride (Saline Flush) 10 ml FLUSH ASDIRECTED PRN PRN Reason: Keep Vein Open Stop: 02/28/19 18:00
--- NOTE | 2019-03-06 08:05 | PCM.HP.2 ---
H&P History of Present Illness - General Date of Service: 02/28/19 Admit Problem/Dx: colon mass Source of Information: Patient History Limitations: Reports: No Limitations - History of Present Illness Initial Comments - Free Text/Narative: Presents for right colectomy after visualization of lesion in the cecum on colonoscopy that previously has been partially resected endoscopically a few months ago. Pathology showed tubular adenoma. Abdomen Pain Score (Numeric/FACES): 0 - Related Data Allergies/Adverse Reactions: Allergies Allergy/AdvReac Type Severity Reaction Status Date / Time No Known Allergies Allergy Verified 02/28/19 16:25 Home Medications: Home Meds Codeine/Butalbital/ASA/Caffein [Ascomp with Codeine] 1 tab PO Q4H PRN 11/05/18 [ History] Cyclobenzaprine [Flexeril] 10 mg PO TID PRN 11/05/18 [History] Fish Oil/[place]-3 Fatty Acids [Fish Oil 1,000 MG] 1 gm PO DAILY 11/05/18 [History ] Levothyroxine [Synthroid] 100 mcg PO DAILY 11/05/18 [History] Lutein 10 mg PO DAILY 11/05/18 [History] Multivitamin [Daily Multiple Vitamin] 1 tab PO DAILY 11/05/18 [History] Propylene Glycol/PEG 400/Pf [Systane 0.3-0.4% Eye Drop] 1 drop EYEBOTH Q4HR PRN 11/05/18 [History] Venlafaxine HCl [Venlafaxine ER] 150 mg PO DAILY 11/05/18 [History] oxyCODONE 5 mg PO Q4H PRN #15 tab 03/04/19 [Rx] Past Medical History HEENT History: Reports: Allergic Rhinitis, Other (See Below) Other HEENT History: impacted cerumen, cataract Cardiovascular History: Reports: Other (See Below) Other Cardiovascular History: varicose veins Respiratory History: Reports: Sleep Apnea Gastrointestinal History: Reports: Hemorrhoids Genitourinary History: Reports: None [employer]IAN History: Reports: Musculoskeletal History: Reports: None Neurological History: Reports: Other (See Below) Other Neuro History: neck pain- occasional Psychiatric History: Reports: Anxiety, Depression, Other (See Below) Other Psychiatric History: insomnia Endocrine/Metabolic History: Reports: Hypothyroidism, Obesity/BMI 30+, Vitamin D Deficiency, Other (See Below) Other Endocrine/Metabolic History: grave's disease Hematologic History: Reports: None Immunologic History: Reports: None Oncologic (Cancer) History: Reports: None Dermatologic History: Reports: Other (See Below) Other Dermatologic History: nevus - Infectious Disease History Other Infectious Disease History: pt states she can't remember if she had the chicken pox as a child - Past Surgical History Head Surgeries/Procedures: Reports: None HEENT Surgical History: Reports: Cataract Surgery, Detached Retina, LASIK Cardiovascular Surgical History: Reports: None Respiratory Surgical History: Reports: None GI Surgical History: Reports: Colonoscopy Female Surgical History: Reports: None Endocrine Surgical History: Reports: Thyroidectomy Neurological Surgical History: Reports: None Musculoskeletal Surgical History: Reports: None Oncologic Surgical History: Reports: None Social & Family History - Family History Family Medical History: Noncontributory - Tobacco Use Smoking Status *Q: Never Smoker - Caffeine Use Caffeine Use: Reports: Coffee - Recreational Drug Use Recreational Drug Use: No H&P Review of Systems - Review of Systems: Review Of Systems: See Below General: Reports: No Symptoms HEENT: Reports: No Symptoms Pulmonary: Reports: No Symptoms Cardiovascular: Reports: No Symptoms Gastrointestinal: Reports: No Symptoms Genitourinary: Reports: No Symptoms Musculoskeletal: Reports: No Symptoms Skin: Reports: No Symptoms Psychiatric: Reports: No Symptoms Neurological: Reports: No Symptoms Hematologic/Lymphatic: Reports: No Symptoms Immunologic: Reports: No Symptoms Exam - Exam Exam: See Below - Vital Signs Vital Signs: Last Vital Signs Temp 37.0 C 03/04/19 05:00 Pulse 66 03/04/19 05:00 Resp 14 03/04/19 05:00 BP 123/82 03/04/19 05:00 Pulse Ox 92 L 03/04/19 05:00 Weight: 103.102 kg - Exam General: Alert, Oriented HEENT: Conjunctiva Clear Neck: Supple, Trachea Midline Lungs: Clear to Auscultation Cardiovascular: Regular Rate, Regular Rhythm GI/Abdominal Exam: Soft, No Distention (Female) Exam: Deferred Rectal (Female) Exam: Normal Exam Back Exam: Full Range of Motion Extremities: Normal Inspection Skin: Warm, Dry, Intact Neurological: Normal Gait Neuro Extensive - Mental Status: Alert, Oriented x3 Neuro Extensive - Motor, Sensory, Reflexes: Normal Gait Psychiatric: Alert, Normal Affect - Patient Data Result Diagrams: 03/01/19 04:42 03/01/19 04:42 Sepsis Event Note - Evaluation Sepsis Screening Result: No Definite Risk *Q Meaningful Use (ADM) - VTE Risk Assess *Q Each Risk Factor Represents 1 Point: Obesity ( BMI > 25 kg/m2) Total Score 1 Point Risk Factors: 1 Problem List Initiated/Reviewed/Updated: Yes Assessment/Plan Comment:: Adenomatous lesion in cecum, not amenable to endoscopic resection. Plan for elective laparoscopic R colectomy. - Mortality Measure Prognosis:: Good
== END 2019-03-04 12:03 | disposition home or self-care (01) | DRG 231 ==
LOC: JD.MS 09:02
PROVIDERS: ADMIT Surgery; ATTEND Surgery
PROC: 0DTF4ZZ Resection of Right Large Intestine, Percutaneous Endoscopic Approach (ICD-10-PCS; principal; 2019-02-28)
DX: D12.6 Benign neoplasm of colon, unspecified (principal); Q43.8 Other specified congenital malformations of intestine; K56.7 Ileus, unspecified; F41.9 Anxiety disorder, unspecified; F32.9 Major depressive disorder, single episode, unspecified; E03.9 Hypothyroidism, unspecified; E66.9 Obesity, unspecified; E55.9 Vitamin D deficiency, unspecified; K66.0 Peritoneal adhesions (postprocedural) (postinfection); M54.2 Cervicalgia; G89.29 Other chronic pain; E78.00 Pure hypercholesterolemia, unspecified; G47.33 Obstructive sleep apnea (adult) (pediatric); Z79.899 Other long term (current) drug therapy; Z99.89 Dependence on other enabling machines and devices; Z98.49 Cataract extraction status, unspecified eye; Z90.89 Acquired absence of other organs
CPT/HCPCS: 00790; 36415; 71046; 71046-26; 80048; 85025; 94640; 94760; 94761; 97161-GP; 97165-GO; A9270-GY; J0690; J0694; J1100; J1170; J1644; J1885; J2001; J2250; J2270; J2405; J2704; J2710; J3010; J3490; J7050; J7120

== ENCOUNTER 2019-03-09 17:53 | Emergency (ER) | payer BC ==
[2019-03-09] MEDS ORDERED: Sodium Chloride 0.9% 1,000 ML IV SCH (18:30)
--- NOTE | 2019-03-09 18:40 | EDM.PDOC ---
ED HPI GENERAL MEDICAL PROBLEM - General Chief Complaint: Gastrointestinal Problem Stated Complaint: INCISION DRAINING Time Seen by Provider: 03/09/19 18:05 Source of Information: Reports: Patient, Provider (Dr. Aguiar) History Limitations: Reports: No Limitations - History of Present Illness INITIAL COMMENTS - FREE TEXT/NARRATIVE: Ms. Contreras is a very pleasant 58-year-old woman with a past medical history significant for hypothyroidism, depression, and a large colon polyp that was unable to be adequately removed by colonoscopy, therefore she underwent a right hemicolectomy with primary anastomosis to remove that small portion of the colon on , 02/28/2019. She was discharged home on 03/04/2019. She states that things were going well until today, when part of her surgical wound appeared to open up and started draining fluid. Initially, it was quite minimal , but later today she noted that her blouse had been soaked through. No pain or fever. She notes that she has had slight diarrhea that she attributes to the MiraLAX and Colace that she was instructed to take postoperatively. The patient has been taking 1 to 2 tablets of oxycodone per day, most recently at 13:30 this afternoon. The patient last ate around 14:30 today. The patient's PCP is Dr. Estelle Cooley. Her Surgeon is Dr. Natanael Aguiar. She has an appointment to follow-up with Dr. Aguiar on 03/13/2019. The patient did not receive an influenza vaccine this season, and declined an offer for one today. Left Abdominal Pain Score (Numeric/FACES): 4 - Related Data Allergies Allergy/AdvReac Type Severity Reaction Status Date / Time No Known Allergies Allergy Verified 03/09/19 18:05 Home Meds: Home Meds Codeine/Butalbital/ASA/Caffein [Ascomp with Codeine] 1 tab PO Q4H PRN 11/05/18 [ History] Cyclobenzaprine [Flexeril] 10 mg PO TID PRN 11/05/18 [History] Fish Oil/[place]-3 Fatty Acids [Fish Oil 1,000 MG] 1 gm PO DAILY 11/05/18 [History ] Levothyroxine [Synthroid] 100 mcg PO DAILY 11/05/18 [History] Lutein 10 mg PO DAILY 11/05/18 [History] Multivitamin [Daily Multiple Vitamin] 1 tab PO DAILY 11/05/18 [History] Propylene Glycol/PEG 400/Pf [Systane 0.3-0.4% Eye Drop] 1 drop EYEBOTH Q4HR PRN 11/05/18 [History] Venlafaxine HCl [Venlafaxine ER] 150 mg PO DAILY 11/05/18 [History] oxyCODONE 5 mg PO Q4H PRN #15 tab 03/04/19 [Rx] Past Medical History HEENT History: Reports: Allergic Rhinitis Respiratory History: Reports: Sleep Apnea (nightly CPAP 7) Gastrointestinal History: Reports: Colon Polyp, Hemorrhoids DIRECTOR GRAPHICS History: Reports: Psychiatric History: Reports: Depression, Other (See Below) (Insomnia) Endocrine/Metabolic History: Reports: Hypothyroidism (Grave disease, s/p I-131 ablation), Obesity/BMI 30+, Vitamin D Deficiency - Past Surgical History HEENT Surgical History: Reports: Cataract Surgery (left only), Detached Retina ( left, laser surgery), LASIK (bilateral), Oral Surgery (wisdom teeth extraction) GI Surgical History: Reports: Colon (right hemicolectomy 02/28/2019), Colonoscopy (x 2) Endocrine Surgical History: Reports: Thyroidectomy Social & Family History - Family History Family Medical History: Noncontributory - Tobacco Use Smoking Status *Q: Never Smoker - Caffeine Use Caffeine Use: Reports: Coffee - Alcohol Use Alcohol Use History: Yes Alcohol Use Frequency: Socially - Recreational Drug Use Recreational Drug Use: No - Living Situation & Occupation Living situation: Reports: , Alone 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 ED EXAM, GI/ABD - Physical Exam Exam: See Below Exam Limited By: No Limitations General Appearance: Alert, WD/WN, No Apparent Distress Eyes: Bilateral: Normal Appearance, EOMI Ears: Normal External Exam, Hearing Grossly Normal Nose: Normal Inspection Throat/Mouth: Normal Inspection, Normal Lips, Normal Voice, No Airway Compromise Head: Atraumatic, Normocephalic Neck: Normal Inspection, Full Range of Motion Respiratory/Chest: No Respiratory Distress, Lungs Clear, Normal Breath Sounds, No Accessory Muscle Use Cardiovascular: Normal Peripheral Pulses, Regular Rate, Rhythm, No Edema, No Gallop, No JVD, No Murmur, No Rub GI/Abdominal Exam: Normal Bowel Sounds, Soft, Non-Tender, No Organomegaly, No Distention, No Abnormal Bruit, No Mass, Other (There is a vertical periumbilical surgical wound, stapled, with a small portion of dehiscence just left of the umbilicus) (Female) Exam: Deferred Rectal (Female) Exam: Deferred Back Exam: Normal Inspection, Full Range of Motion, NT Extremities: Normal Inspection, Normal Range of Motion, No Pedal Edema, Normal Capillary Refill Neurological: Alert, Oriented, Normal Cognition, No Motor/Sensory Deficits Psychiatric: Normal Affect Skin Exam: Warm, Dry, Intact, Normal Color, No Rash Course - Vital Signs Last Recorded V/S: Last Vital Signs Temp 36.8 C 03/09/19 18:05 Pulse 69 03/09/19 18:05 Resp BP 161/92 H 03/09/19 18:05 Pulse Ox 98 03/09/19 18:05 - Orders/Labs/Meds Orders: Active Orders 24 hr Category Date Time Status Sodium Chloride 0.9% [Normal Saline] 1,000 ml Med 03/09/19 18:30 Active IV ASDIRECTED Sodium Chloride 0.9% [Saline Flush] Med 03/09/19 19:13 Active 10 ml FLUSH ONETIME PRN Medication Orders Sodium Chloride (Normal Saline) 1,000 mls @ 150 mls/hr IV ASDIRECTED KALIE Last Admin: 03/09/19 18:58 Dose: 150 mls/hr Sodium Chloride (Saline Flush) 10 ml FLUSH ONETIME PRN PRN Reason: Keep Vein Open Last Admin: 03/09/19 19:22 Dose: 10 ml Meds: Medications Generic Name Dose Route Start Last Admin Trade Name Freq PRN Reason Stop Dose Admin Sodium Chloride 1,000 mls @ 150 mls/hr 03/09/19 18:30 03/09/19 18:58 Normal Saline IV 150 mls/hr ASDIRECTED KALIE Administration Sodium Chloride 10 ml 03/09/19 19:13 03/09/19 19:22 Saline Flush FLUSH 10 ml ONETIME PRN Administration Keep Vein Open Discontinued Medications Generic Name Dose Route Start Last Admin Trade Name Freq PRN Reason Stop Dose Admin Iopamidol 100 ml 03/09/19 19:12 03/09/19 19:22 Isovue-300 (61%) IVPUSH 03/09/19 19:13 100 ml ONETIME ONE Administration - Re-Assessments/Exams Free Text/Narrative Re-Assessment/Exam: 03/09/19 18:31 By coincidence, Dr. Aguiar was in the ED when I was evaluating the patient, and he came to see the patient. He removed some of the surgical jess, and drained some wagner, non-malodorous fluid from the abdominal wound. He believes that the fluid represents a seroma that formed in the adipose layer, but he wants to be sure that there is no dehiscence/herniation of the abdominal wound, therefore he requested a CT scan of the abdomen and pelvis with IV contrast. Because we are not looking for an intra-abdominal process, the patient does not require oral contrast, and can go over to CT scan immediately. I have ordered IV fluid, but Dr. Aguiar stated that he does not need blood work. Dr. Aguiar is about to take another patient to the OR; I will communicate the CT results to him. 03/09/19 20:02 CT of the abdomen and pelvis with IV contrast as read by Dr. Tarango as: 1. Increased density around the umbilicus within the subcutaneous fat. Findings are presumably postsurgical if patient has no symptoms of cellulitis. 2. No bone dehiscence is appreciated. [sic] 3. Other findings believed to be incidental and nonacute as described above. The above was discussed with Dr. Aguiar. He is going to come by the ED to put some Steri-Strips over the patient's wound, then we will discharge her home. As above, the patient will follow up with him at her previously scheduled appointment on this coming 03/13/2019. Departure - Departure Time of Disposition: 20:04 Disposition: Home, Self-Care 01 Condition: Good Clinical Impression: Abdominal wall seroma - Discharge Information *PRESCRIPTION DRUG MONITORING PROGRAM REVIEWED*: Not Applicable *COPY OF PRESCRIPTION DRUG MONITORING REPORT IN PATIENT GEOFFREY: Not Applicable Referrals: Natanael Aguiar MD [Primary Care Provider] - Estelle Cooley MD [Physician] - Forms: ED Department Discharge Additional Instructions: You were seen in the emergency room after fluid leaked out of your abdominal surgical wound. Work-up in the ER included a CT scan of your abdomen and pelvis with IV contrast , which showed no dehiscence of your surgical wound. Based on your history, physical exam, and CT results, the source of the fluid it was most likely an abdominal wall seroma. Dr. Aguiar has Steri-Stripped your wound. Follow-up with Dr. Aguiar at your previously scheduled appointment on 03/13/2019. If any other problems, please do not hesitate to return to the ER. Sepsis Event Note - Evaluation Sepsis Screening Result: No Definite Risk - Focused Exam Vital Signs: Vital Signs Temp Pulse BP Pulse Ox 03/09/19 18:05 36.8 C 69 161/92 H 98 Date Exam was Performed: 03/09/19 Time Exam was Performed: 20:02 - My Orders Last 24 Hours: My Active Orders 03/09/19 18:30 Sodium Chloride 0.9% [Normal Saline] 1,000 ml IV ASDIRECTED 03/09/19 19:13 Sodium Chloride 0.9% [Saline Flush] 10 ml FLUSH ONETIME PRN - Assessment/Plan Last 24 Hours: My Active Orders 03/09/19 18:30 Sodium Chloride 0.9% [Normal Saline] 1,000 ml IV ASDIRECTED 03/09/19 19:13 Sodium Chloride 0.9% [Saline Flush] 10 ml FLUSH ONETIME PRN
[2019-03-09] MEDS ORDERED: Iopamidol 612 MG/ML 100 ML Bottle IVPUSH ONE (19:12)
[2019-03-09] MEDS ORDERED: Sodium Chloride 0.9% 10 ML Syringe FLUSH PRN (19:13)
--- NOTE | 2019-03-09 19:55 | CT ---
Addendum: Impression states no bone dehiscence is appreciated. This is a voice recognition error and should read: 2. No wound dehiscence is appreciated. Other portions of the dictation remain the same. --- Addendum1 above dictated on [04/14/2019 09:38] by [Aidan Tarango Hilton J.] --- --- Addendum1 above signed on [04/14/2019 09:39] by [Aidan Tarango Hilton J.] --- --- Original report below dictated on [03/09/2019 19:49] by [Aidan Tarango Hilton J.] --- --- Original report below signed on [03/09/2019 19:49] by [Aidan Tarango Hilton J.] --- CT abdomen and pelvis Technique: Multiple axial sections were obtained from above the dome of the diaphragm inferiorly through the pubic symphysis. Intravenous contrast was utilized. No oral contrast has been given. Delayed images were also obtained through the bladder. Comparison: No prior abdominal imaging is available. Findings: Visualized lung bases show nothing acute. Liver contains no focal abnormality. Spleen appears within normal limits. Adrenal glands show no nodule. Pancreas shows no discrete abnormality. Kidneys show symmetric contrast enhancement without hydronephrosis or mass. Small nonobstructing calculus is noted within the upper left kidney. Aorta shows no aneurysm. Atherosclerotic calcification is seen within the aorta. Gallbladder contains no calcified gallstones. No retroperitoneal adenopathy is seen. No pelvic mass or adenopathy is identified. Increased density is noted around the umbilicus within the subcutaneous fat. This presumably is due to previous surgery. No wound dehiscence is seen on this study. Previous surgery is noted within the right colon. Appendix is not visualized. No free fluid or inflammatory changes seen within the abdomen or pelvis. Delayed images shows contrast within the distal ureters and within the bladder. Bone window settings were reviewed which shows degenerative change within the spine. Impression: 1. Increased density around the umbilicus within the subcutaneous fat. Findings are presumably postsurgical if patient has no symptoms of cellulitis. 2. No bone dehiscence is appreciated. 3. Other findings believed to be incidental and nonacute as described above. Diagnostic code #2 This report was dictated in [place] Standard Time --- Addendum1 signed ---
== END 2019-03-09 20:10 | disposition home or self-care (01) ==
LOC: JD.ED 17:53
DX: K91.872 Postprocedural seroma of a digestive system organ or structure following a digestive system procedure (principal); F32.9 Major depressive disorder, single episode, unspecified; E03.9 Hypothyroidism, unspecified; Z79.899 Other long term (current) drug therapy
CPT/HCPCS: 74177; 96360; 99284; J7030; Q9967; 99283

== ENCOUNTER 2023-01-03 06:53 | Day surgery (SDC) | payer BC ==
[~2023-01-03 06:53] MED LIST changes: -Dexamethasone 4 MG/ML 5 ML MDV ONE; -HYDROmorphone 0.5 MG/0.5 ML Syringe ONE; -Ketorolac 30 MG/ML SDV ONE; -Lactated Ringers 2,000 ML ONE; -Lidocaine 1% 6 ML ONE; -Lidocaine 1%/Sod Bicarbonate in NS 8.4% 1 ML Syringe IDERM PRN; -Midazolam 1 MG/ML 2 ML SDV ONE; -Ondansetron 4 MG/2 ML SDV ONE; -Propofol 200 MG/20 ML SDV ONE; -Rocuronium 100 MG/10 ML MDV ONE; +Sodium Chloride 0.9% 10 ML Syringe FLUSH SCH; -ceFAZolin 1 GM Vial ONE; -fentaNYL 250 MCG/5 ML SDV ONE
[2023-01-03] MEDS ORDERED: Propofol 200 MG/20 ML SDV ONE ×2 (06:54→06:55)
[2023-01-03] MEDS ORDERED: Midazolam 1 MG/ML 2 ML SDV ONE (06:54)
[2023-01-03] MEDS ORDERED: Lidocaine 1% 2 ML ONE (06:55)
[2023-01-03] MEDS ORDERED: Ondansetron 4 MG/2 ML SDV IVPUSH PRN (07:05)
[2023-01-03] MEDS ORDERED: Sodium Chloride 0.9% 10 ML Syringe FLUSH SCH (09:00)
== END 2023-01-03 09:12 | disposition home or self-care (01) ==
LOC: JD.SDS 06:53
PROVIDERS: ATTEND Specialist
DX: Z12.11 Encounter for screening for malignant neoplasm of colon (principal); F41.9 Anxiety disorder, unspecified; G89.29 Other chronic pain; M54.2 Cervicalgia; F32.A Depression, unspecified; K21.9 Gastro-esophageal reflux disease without esophagitis; E78.00 Pure hypercholesterolemia, unspecified; G47.00 Insomnia, unspecified; G47.33 Obstructive sleep apnea (adult) (pediatric); Z86.010 Personal history of colon polyps; Z80.0 Family history of malignant neoplasm of digestive organs; Z79.84 Long term (current) use of oral hypoglycemic drugs; Z79.899 Other long term (current) drug therapy; Z79.890 Hormone replacement therapy; Z79.85 Long-term (current) use of injectable non-insulin antidiabetic drugs
CPT/HCPCS: 45378; J2250; J2704; J7120; J3490